=== PATIENT | female | born 1985 | race Two or more races ===

== ENCOUNTER 2018-10-21 13:32 | Emergency (ER) | payer MEDICAID ==
[~2018-10-21] VITALS: Ht 170.2 cm; Wt 111.1 kg
[2018-10-21 14:06] VITALS: BP 116/65
[2018-10-21] MEDS ORDERED: diphenhdrAMINE HCL 50 MG/1 ML VL IM ONE (14:45)
== END 2018-10-21 15:42 | disposition home or self-care (01) ==
LOC: ER 13:32
DX: F41.9 Anxiety disorder, unspecified (principal)
CPT/HCPCS: 93005; 96372; 99284; J1200

== ENCOUNTER 2018-10-29 13:43 | Emergency (ER) | payer MEDICAID ==
[~2018-10-29] VITALS: Ht 170.2 cm; Wt 108.9 kg
[2018-10-29 14:36] LABS: Basophils # (auto) 0.1 uL; Basophils % (auto) 0.6 % (0.0-2.0); Eosinophils # (auto) 0.2 uL; Eosinophils % (auto) 2.2 % (0.0-7.0); Hemoglobin 12.9 g/dL (12.2-16.2); Lymphocytes # (auto) 1.9 uL; Lymphocytes % (auto) 20.7 % (10.0-50.0); Mean Corpuscular Hgb Conc. 33.1 g/dL (32.0-36.0); Mean Corpuscular Volume 84.6 fL (80.0-100.0); Monocytes # (auto) 0.7 uL; Neutrophils # (auto) 6.4 uL; Neutrophils % (auto) 68.5 % (37.0-80.0); Nucleated Red Blood Cells % 0.1 %; Platelet Count (auto) 272 10^3/uL (140-450); Red Cell Distribution Width 15.3 % (11.8-14.3); White Blood Cell 9.3 10^3/uL (4.4-10.8)
[2018-10-29 14:48] LABS: Chloride 108 mmol/L (98-107); Potassium 4.2 mmol/L (3.5-5.1); Sodium 142 mmol/L (136-145)
[2018-10-29 14:53] LABS: Alanine Aminotransferase 51 U/L (13-56); Albumin 3.8 g/dL (3.4-5.0); Anion Gap 9 (5-15); Aspartate Aminotransferase 30 U/L (15-37); BUN/Creatinine Ratio 19.4; Blood Urea Nitrogen 13 mg/dL (7-18); Calcium 8.8 mg/dL (8.5-10.1); Carbon Dioxide 25 mmol/L (21-32); GFR African American 130 mL/min; GFR Non-African American 108 mL/min; Glucose 91 mg/dL (74-106)
[2018-10-29 14:55] LABS: Alkaline Phosphatase 57 U/L (45-117); Bilirubin, Total 0.3 mg/dL (0.2-1.0); Total Protein 7.8 g/dL (6.4-8.2)
[2018-10-29 17:13] VITALS: BP 108/61
== END 2018-10-29 17:15 | disposition home or self-care (01) ==
LOC: ER 13:44
DX: F41.9 Anxiety disorder, unspecified (principal); M54.2 Cervicalgia; M54.9 Dorsalgia, unspecified
CPT/HCPCS: 36415; 80053; 85025; 93005